=== PATIENT | male | born 1945 | race Caucasian/White ===

== ENCOUNTER 2020-12-24 12:49 | Emergency (ER) | payer OTHER ==
[~2020-12-24] VITALS: Ht 177.8 cm; Wt 84.0 kg
[2020-12-24 13:26] VITALS: BP 121/82
[2020-12-24] MEDS ORDERED: ACET-1025 PO (19:36)
== END 2020-12-24 19:39 | disposition home or self-care (01) ==
LOC: ER 12:50
DX: M54.2 Cervicalgia (principal); Z79.899 Other long term (current) drug therapy; V87.7XXA Person injured in collision between other specified motor vehicles (traffic), initial encounter; Y93.89 Activity, other specified; Y92.89 Other specified places as the place of occurrence of the external cause; Y99.8 Other external cause status
CPT/HCPCS: 99282